=== PATIENT | female | born 1955 | race African-American/Black ===

== ENCOUNTER 2016-02-21 13:42 | Emergency (ER) | payer OTHER ==
[~2016-02-21] VITALS: Ht 154.9 cm; Wt 57.0 kg
[~2016-02-21 13:42] MED LIST: 1-ME1LIQ PO; OMEP20TA39 PO
[2016-02-21 13:54] VITALS: BP 178/90; PULSE 100; RESP 18; TEMP 98.5; O2SAT 99
[2016-02-21] MEDS ORDERED: TYLETAB34 PO (14:41)
--- NOTE | 2016-02-21 14:41 | PD ---
HPI . Laceration of the right index finger Chief Complaint: Laceration/Skin Injury Time Seen by Provider: 14:34 Travel History International Travel<30 days: No Contact w/Intl Traveler<30days: No Traveled to known affect area: No History of Present Illness HPI Patient presents following a laceration to the tip of her right index finger shortly prior to presentation. She was working at the [employer] and got her finger caught in the slicer. She does not recall the date of her last tetanus shot. She states that there is a piece of her finger in the zucchini. [facility] Past Medical History Anemia: Yes Heart Rhythm Problems: Yes Cardiovascular Problems: Yes (HEART MURMUR) High Cholesterol: Yes Diminished Hearing: No Hypertension: Yes Migraines: Yes ("ONLY WHEN I WAS A TEENAGER") Sickle Cell Disease: Yes (TRAIT) Influenza Vaccination: No ?: Not Menopausal: Yes : 2 Para: 2 Miscarriage: 0 : 0 Past Surgical History Gynecologic Surgery: Yes (HYSTERECTOMY) Hysterectomy: Yes Other Surgery: Yes (RECENT DENTAL WORK) Social History Alcohol Use: Yes (DAILY) Tobacco Use: Yes (1PPD) Substance Use: No Allergies-Medications (Allergen,Severity, Reaction): Coded Allergies: No Known Allergies (Unverified , 05/13/15) Reported Meds & Prescriptions Reported Meds & Active Scripts Active Hm Omeprazole (Omeprazole) 20 Mg Tab 40 Mg PO DAILY Reported Amlodipine Besylate 10 mg (Amlodipine Besylate) 10 Mg Tab 1 Tab PO DAILY Review of Systems Except as stated in HPI: all other systems reviewed are Neg Musculoskeletal: Positive: Pain Skin: Positive Other (laceration of the tip of the finger) Physical Exam Narrative GENERAL: Patient is lying on the stretcher with her finger wrapped in gauze finger finger in the area. SKIN: Warm and dry. She has avulsed the radial aspect of the pad of the right index finger. HEAD: Atraumatic. Normocephalic. EYES: Pupils equal and round. ENT: No nasal bleeding or discharge. NECK: Trachea midline. CARDIOVASCULAR: Regular rate and rhythm. RESPIRATORY: No accessory muscle use. MUSCULOSKELETAL: No obvious deformities. No edema. NEUROLOGICAL: Awake and alert. No obvious cranial nerve deficits. Motor grossly within normal limits. Normal speech. PSYCHIATRIC: Appropriate mood and affect; insight and judgment normal. Data Data Last Documented VS Vital Signs Date Time Temp Pulse Resp B/P Pulse Ox O2 Delivery O2 Flow Rate FiO2 02/21/16 13:54 98.5 100 18 178/90 99 MDM Medical Decision Making Medical Screen Exam Complete: Yes Emergency Medical Condition: Yes Differential Diagnosis Differential diagnosis includes but is not limited to abrasion, superficial laceration, deep laceration, skin avulsion Narrative Course The patient presents after slicing off a portion of the pad of her right index finger. It is less than a centimeter in diameter. There is nothing to sew. Diagnosis Primary Impression: Avulsion of skin of finger Qualified Code: S61.209A - Avulsion of skin of finger, initial encounter Patient Instructions: General Instructions, Narcotic given in the ED, Skin Avulsion (ED) Additional Instructions: Clean the wound twice daily with soap and water. Apply a thin layer of Neosporin ointment after you wash it. See your doctor in 3 days for suture recheck. Seek care sooner for redness, drainage, warmth, unusual pain. Med/Other Pt SpecificInfo: Prescription(s) given Scripts Acetaminophen-Codeine (Tylenol-Codeine #3)300-30 mg Tab1-2 Tab PO Q6H PRN (PAIN ) #10 TAB Ref 0 Prov:Dalila Alcaraz MD 02/21/16 Disposition: 01 DISCHARGE HOME Condition: Stable Dalila Alcaraz MD Feb 21, 2016 14:41
[2016-02-21] MEDS ORDERED: ACETAMINOPHEN/HYDROcodone 325 MG/5 MG TAB PO ONE (14:45)
[2016-02-21] MEDS ORDERED: NEOMYCIN/POLYMYXIN/BACITRACIN OINT 15 GM TUBE TOPICAL ONE (14:45)
[2016-02-21] MEDS ORDERED: TETANUS/DIPHTHERIA TOXOID ADULT 0.5 ML VIAL IM ONE (14:45)
== END 2016-02-21 16:04 | disposition home or self-care (01) ==
LOC: PHEFT 13:42
DX: S61.210A Laceration without foreign body of right index finger without damage to nail, initial encounter (principal); E78.00 Pure hypercholesterolemia, unspecified; I10 Essential (primary) hypertension; D57.3 Sickle-cell trait; F17.210 Nicotine dependence, cigarettes, uncomplicated; Z23 Encounter for immunization; W31.82XA Contact with other commercial machinery, initial encounter; Y93.G1 Activity, food preparation and clean up; Y92.511 Restaurant or cafe as the place of occurrence of the external cause; Y99.0 Civilian activity done for income or pay
CPT/HCPCS: 90471; 90714